=== PATIENT | female | born 1995 | race Caucasian/White ===

== ENCOUNTER 2016-11-14 04:46 | Emergency (ER) | payer OTHER ==
[~2016-11-14] VITALS: Ht 160 cm; Wt 62.1 kg
[2016-11-14 04:46] VITALS: BP 137/87
[~2016-11-14 04:46] MED LIST: IBUPROFEN800 M1 PO; MACROBID100 MG PO; MULTI VIT W/FLU1 CTB; PRENATAL VITAMI1 T10 PO
--- NOTE | 2016-11-14 04:46 | NUR ---
[place] [facility] AT BEDSIDE.
--- NOTE | 2016-11-14 04:46 | NUR ---
0442 BIBA TO ER BED 1
--- NOTE | 2016-11-14 04:46 | NUR ---
0443 Patient being evaluated by physician at bedside.
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
[2016-11-14] MEDS ORDERED: KETOROLAC 30 MG/ML VIAL IM ONE (04:50)
[2016-11-14] MEDS ORDERED: LORazepam 2 MG/ML VIAL IM ONE (04:50)
[2016-11-14] MEDS ORDERED: LORazepam 2 MG/ML VIAL IVP ONE (05:25)
[2016-11-14] MEDS ORDERED: KETOROLAC 30 MG/ML VIAL IVP ONE (05:25)
--- NOTE | 2016-11-14 05:45 | NUR ---
PT RESTING, FAMILY AT BEDSIDE.VSS; PATIENT POSITIONED FOR COMFORT; HOB ELEVATED; BEDRAILS UP X2; BED DOWN. ER MD MADE AWARE OF PT STATUS.
--- NOTE | 2016-11-14 06:53 | NUR ---
Patient appears to be resting comfortably in bed. Vital Signs within normal limits. Respirations even and unlabored.
--- NOTE | 2016-11-14 06:57 | NUR ---
[facility] AT BEDSIDE [employer] CASE # [id number].
--- NOTE | 2016-11-14 07:02 | NUR ---
Patient noted to have existing wounds upon arrival to ER. Wound covered with dressing. Physician informed.
[2016-11-14 07:03] VITALS: BP 122/76
--- NOTE | 2016-11-14 07:04 | NUR ---
Patient discharged with v/s stable. Written and verbal after care instructions given and explained. Patient alert, oriented and verbalized understanding of instructions. Wheel Chair Assisted with steady gait. All questions addressed prior to discharge. ID band removed. Patient advised to follow up with PMD. Rx of ULTRAM 50MG QIDPRN, given. Patient educated on indication of medication including possible reaction and side effects. Opportunity to ask questions provided and answered.
== END 2016-11-14 07:03 | disposition home or self-care (01) ==
LOC: MED 04:46
DX: S00.83XA Contusion of other part of head, initial encounter (principal); Y04.2XXA Assault by strike against or bumped into by another person, initial encounter; Y93.89 Activity, other specified; Y92.89 Other specified places as the place of occurrence of the external cause; Y99.8 Other external cause status
CPT/HCPCS: 70450; 70486; 72125; 96374; 96375; 99284; J1885; J2060

== ENCOUNTER 2016-12-13 11:39 | Emergency (ER) | payer OTHER ==
[~2016-12-13] VITALS: Ht 160 cm; Wt 61.2 kg
[2016-12-13 11:54] VITALS: BP 109/76
[2016-12-13 13:17] VITALS: BP 109/76
--- NOTE | 2016-12-13 13:19 | NUR ---
[facility] in [facility] - 12/13/16 at 1319 by MONO PT AMBULATED TO BED 6
--- NOTE | 2016-12-13 13:19 | NUR ---
PT AMBULATED TO BED 7
--- NOTE | 2016-12-13 13:19 | NUR ---
21/F TO ED WITH C/O PAIN "IN HER MIDDLE ABDOMEN UNDER HER RIBS" X3 DAYS. DENIES PAIN AT THIS TIME. BOWEL SOUNDS PRESENT X4Q. LUNGS CLEAR BILAT. HR EVEN AND REGULAR. AAOX4. VSS. NO SIGNS OF DISTRESS.
--- NOTE | 2016-12-13 14:00 | NUR ---
PATIENT LEFT WITHOUT BEING SEEN BY DR. ENRIQUEZ. NO FURTHER CARE PROVIDED FOR PATIENT.
== END 2016-12-13 14:00 | disposition left against medical advice (07) ==
LOC: MED 11:47
DX: R07.81 Pleurodynia (principal); Z53.21 Procedure and treatment not carried out due to patient leaving prior to being seen by health care provider

== ENCOUNTER 2017-07-05 07:24 | Emergency (ER) | payer OTHER ==
[~2017-07-05] VITALS: Ht 160 cm; Wt 74.8 kg
[2017-07-05 07:32] VITALS: BP 130/62
--- NOTE | 2017-07-05 07:33 | NUR ---
Patient ambulated to bed 07.
--- NOTE | 2017-07-05 07:36 | NUR ---
Dr. Collier evaluating patient at bedside.
--- NOTE | 2017-07-05 07:38 | NUR ---
PT PRESENTS TO ER W/C/O LOWER ABDOMINAL PAIN THAT RADIATATES TO LOWER BACK X2 DAYS. DENIES V/D; SKIN IS PINK/WARM/DRY; AAOX4 WITH EVEN AND STEADY GAIT; LUNGS CLEAR BL; HR EVEN AND REGULAR; PT DENIES ANY FEVER, CP, SOB, OR COUGH AT THIS TIME; PATIENT STATES PAIN OF 7/10 AT THIS TIME; VSS; PATIENT POSITIONED FOR COMFORT; HOB ELEVATED; BEDRAILS UP X2; BED DOWN. ER MD MADE AWARE OF PT STATUS.
[2017-07-05] MEDS ORDERED: KETOROLAC 30 MG/ML VIAL IM ONE (07:40)
[2017-07-05 07:58] LABS: BILIRUBIN,URINE NEGATIVE (NEGATIVE); BLOOD, URINE 1+ (NEGATIVE); COLOR,URINE YELLOW (YELLOW); LEUKOCYTE ESTERASE ,URINE 1+ (NEGATIVE); NITRITE, URINE NEGATIVE (NEGATIVE); PH,URINE 5.5 (5.0-9.0); UGLUCOSE NEGATIVE (NEGATIVE)
[2017-07-05 08:13] LABS: APPEARANCE,URINE CLEAR (CLEAR)
[2017-07-05 08:16] LABS: RBC,URINE NONE SEEN /HPF (0-5)
[2017-07-05 08:50] LABS: BASOPHILS # (AUTO) 0.5 K/uL (0.00-0.22); BASOPHILS % (AUTO) 4.1 % (0.0-2.0); EOSINOPHILS # (AUTO) 0.1 K/uL (0-0.4); HEMATOCRIT 42.6 % (36-48); LYMPHOCYTES # (AUTO) 1.7 K/uL (2.5-16.5); LYMPHOCYTES % (AUTO) 14.5 % (20.5-51.1); MEAN CORPUSCULAR HEMOGLOBIN 30 pg (27-31); MEAN CORPUSCULAR HGB CONC 33 g/dL (33-37); MEAN CORPUSCULAR VOLUME 92 fL (80-94); MONOCYTES # (AUTO) 0.8 K/uL (0.8-1.0); MONOCYTES % (AUTO) 6.5 % (1.7-9.3); NEUTROPHILS # (AUTO) 8.4 K/uL (1.8-7.7); NEUTROPHILS % (AUTO) 73.9 % (42.2-75.2); PLATELET COUNT (AUTO) 224 K/uL (140-450); RED BLOOD CELL COUNT(AUTO) 4.61 MIL/uL (4.20-5.40); WHITE BLOOD COUNT (AUTO) 11.5 K/uL (4.8-10.8)
[2017-07-05 09:06] LABS: ALBUMIN 3.8 g/dL (3.4-5.0); ANION GAP 12.9 (8-16); CREATININE 0.6 mg/dL (0.6-1.3); POTASSIUM 3.9 mmol/L (3.5-5.1); TOTAL BILIRUBIN 0.4 mg/dL (0.0-1.0)
[2017-07-05] MEDS ORDERED: NACL 0.9% 1,000 ML IV ONE (09:45)
--- NOTE | 2017-07-05 10:08 | NUR ---
Patient being taken to CT wheelchair per tech.
--- NOTE | 2017-07-05 10:20 | NUR ---
Patient back from CT via wheelchair per tech.
[2017-07-05 11:06] VITALS: BP 116/76
--- NOTE | 2017-07-05 11:06 | NUR ---
Patient discharged with v/s stable. Written and verbal after care instructions given and explained. Patient alert, oriented and verbalized understanding of instructions. Ambulatory with steady gait. All questions addressed prior to discharge. ID band removed. Patient advised to follow up with PMD. Rx of NITROFURANTOIN given. Patient educated on indication of medication including possible reaction and side effects. Opportunity to ask questions provided and answered.
== END 2017-07-05 11:06 | disposition home or self-care (01) ==
LOC: MED 07:24
DX: N39.0 Urinary tract infection, site not specified (principal)
CPT/HCPCS: 36415; 74177; 80053; 81001; 81025; 82150; 83690; 85025; 87086; 96360; 96372; 99285; J1885; J7030; Q9967

== ENCOUNTER 2018-02-17 17:36 | Emergency (ER) | payer OTHER ==
[~2018-02-17] VITALS: Ht 162.6 cm; Wt 61.2 kg
[2018-02-17 17:38] VITALS: BP 146/89
--- NOTE | 2018-02-17 17:55 | NUR ---
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 DENIES N/V/D; SKIN IS PINK/WARM/DRY; AAOX4 WITH EVEN AND STEADY GAIT; LUNGS CLEAR BL; HR EVEN AND REGULAR; PT DENIES ANY FEVER SOB, OR COUGH AT THIS TIME; PATIENT STATES PAIN OF 7/10 AT THIS TIME; VSS; PATIENT POSITIONED FOR COMFORT; HOB ELEVATED; BEDRAILS UP X2; BED DOWN. ER MD MADE AWARE OF PT STATUS.
[2018-02-17] MEDS ORDERED: KETOROLAC 60 MG/2 ML VIAL IM ONE (18:15)
[2018-02-17] MEDS ORDERED: LORazepam 2 MG/ML VIAL IM ONE (18:15)
[2018-02-17 18:48] VITALS: BP 101/72
== END 2018-02-17 18:48 | disposition home or self-care (01) ==
LOC: MED 17:36
DX: R07.89 Other chest pain (principal); F41.9 Anxiety disorder, unspecified; R03.0 Elevated blood-pressure reading, without diagnosis of hypertension
CPT/HCPCS: 71045; 81002; 81025; 93005; 96372; 99284; J1885; J2060

== ENCOUNTER 2018-04-08 17:24 | Emergency (ER) | payer OTHER ==
[~2018-04-08] VITALS: Ht 160 cm; Wt 64.0 kg
[2018-04-08 17:32] VITALS: BP 131/70
[2018-04-08] MEDS ORDERED: NACL 0.9% 1,000 ML IV SCH (18:21)
[2018-04-08 18:57] LABS: BASOPHILS # (AUTO) 0.1 K/uL (0.00-0.22); BASOPHILS % (AUTO) 0.6 % (0.0-2.0); EOSINOPHILS # (AUTO) 0.1 K/uL (0-0.4); EOSINOPHILS % (AUTO) 0.7 % (0.0-4.0); HEMATOCRIT 43.1 % (36-48); HEMOGLOBIN 14.3 g/dL (12.0-16.0); LYMPHOCYTES # (AUTO) 3.1 K/uL (2.5-16.5); LYMPHOCYTES % (AUTO) 34.9 % (20.5-51.1); MEAN CORPUSCULAR HEMOGLOBIN 31 pg (27-31); MEAN CORPUSCULAR HGB CONC 33 g/dL (33-37); MEAN CORPUSCULAR VOLUME 92.5 fL (80-94); MONOCYTES # (AUTO) 0.5 K/uL (0.8-1.0); MONOCYTES % (AUTO) 5.4 % (1.7-9.3); NEUTROPHILS # (AUTO) 5.1 K/uL (1.8-7.7); NEUTROPHILS % (AUTO) 58.4 % (42.2-75.2); PLATELET COUNT (AUTO) 218 K/uL (140-450); RED BLOOD CELL COUNT(AUTO) 4.67 MIL/uL (4.20-5.40); RED CELL DISTRIBUTION WIDTH 13.4 % (11.6-13.7); WHITE BLOOD COUNT (AUTO) 8.8 K/uL (4.8-10.8)
[2018-04-08 19:15] LABS: ALBUMIN 3.8 g/dL (3.4-5.0); ANION GAP 11.7 (8-16); CARBON DIOXIDE 27.6 mmol/L (21-32); CREATININE 0.6 mg/dL (0.6-1.3); POTASSIUM 4.3 mmol/L (3.5-5.1); TOTAL BILIRUBIN 0.3 mg/dL (0.0-1.0)
[2018-04-08 19:23] VITALS: BP 128/78
== END 2018-04-08 19:23 | disposition home or self-care (01) ==
LOC: MED 17:24
DX: R10.9 Unspecified abdominal pain (principal)
CPT/HCPCS: 36415; 80053; 81002; 81025; 82150; 83690; 85025; 99284

== ENCOUNTER 2019-03-31 15:47 | Emergency (ER) | payer OTHER ==
[~2019-03-31] VITALS: Ht 167.6 cm; Wt 77.1 kg
--- NOTE | 2019-03-31 15:47 | NUR ---
Patient BIBA BLS, transferred to bed 6. RN evaluating patient at bedside.
[2019-03-31 15:48] VITALS: BP 131/80
--- NOTE | 2019-03-31 15:51 | NUR ---
urine cup handed to pt for sample
--- NOTE | 2019-03-31 16:01 | NUR ---
BIBA W/ C/O LLQ PAIN STARTING THIS MORNING AND BECOMING INCREASINGLY WORSE, /, SHARP AND TIGHT. PT REPORTS "IT FEELS LIKE SOMETHING BURST". DENIED INJURY, N/V/D FEVER. LBM 03/31/19, PER PT, REGULAR. ABD SOFT, FLAT AND TENDER TO PALPATION ON LLQ. PT REPORTS BURNING WHILE PEEING, DENIES FREQUENCY, URGENCY. BED IN LOW POSITION, SIDE RAIL UP X1.
[2019-03-31] MEDS ORDERED: KETOROLAC 60 MG/2 ML VIAL IM ONE (16:10)
[2019-03-31 16:35] VITALS: BP 131/80
--- NOTE | 2019-03-31 16:36 | NUR ---
Patient discharged with v/s stable. Written and verbal after care instructions given and explained. Patient alert, oriented and verbalized understanding of instructions. Ambulatory with steady gait. All questions addressed prior to discharge. ID band removed. Patient advised to follow up with PMD. Rx of NORCO & IBUPROFEN given. Patient educated on indication of medication including possible reaction and side effects. Opportunity to ask questions provided and answered.
== END 2019-03-31 16:34 | disposition home or self-care (01) ==
LOC: MED 15:47
DX: R10.32 Left lower quadrant pain (principal); M79.10 Myalgia, unspecified site; R30.0 Dysuria
CPT/HCPCS: 81002; 81025; 96372; 99283; J1885

== ENCOUNTER 2021-03-09 00:44 | Emergency (ER) | payer OTHER ==
[~2021-03-09] VITALS: Ht 160 cm; Wt 79.4 kg
[2021-03-09 00:47] VITALS: BP 135/75
--- NOTE | 2021-03-09 00:53 | NUR ---
PT TAKEN TO BED 3
[2021-03-09] MEDS ORDERED: NACL 0.9% 1,000 ML IV ONE (01:00)
[2021-03-09] MEDS ORDERED: ACETAMINOPHEN EXTRA STRENGTH 500 MG TAB PO ONE (01:00)
--- NOTE | 2021-03-09 01:01 | NUR ---
PT BIB SELF FOR C/O VAGINAL BLEEDING AND ABDOMINAL CRAMPING X 1 HOUR; REPORTING 8 WEEKS . PT STATES "WHEN I WIPE THERES BLOOD." PT ALSO NOTED "MUCUS" X 1 INCIDENT AFTER WIPING. PT REPORTS INTERMITTENT ABDOMINAL CRAMPING, PAIN 04/18. PT STATES SHE CONFIRMED HER IS 8 WEEKS WITH TWINS WHILE AT [employer]. PT REPORTS FIRST OB APPT IS SET FOR 03/27. DENIES N/V/D, CP, SOB. SEE COMPLETE ASSESSMENT FOR FURTHER DETAILS. MED HX: DENIES ALLERGIES: NKA
--- NOTE | 2021-03-09 01:05 | NUR ---
IV RAC 20G ESTABLISHED, LABS DRAWN AND HAND GIVEN TO MONICA, DEPARTMENT MANAGER, AT BEDSIDE.
[2021-03-09 01:15] LABS: BASOPHILS # (AUTO) 0.1 K/uL (0.00-0.22); BASOPHILS % (AUTO) 0.6 % (0.0-2.0); EOSINOPHILS # (AUTO) 0.1 K/uL (0-0.4); EOSINOPHILS % (AUTO) 0.6 % (0.0-4.0); HEMATOCRIT 38.1 % (36-48); HEMOGLOBIN 12.8 g/dL (12.0-16.0); LYMPHOCYTES # (AUTO) 3.3 K/uL (2.5-16.5); LYMPHOCYTES % (AUTO) 23.5 % (20.5-51.1); MEAN CORPUSCULAR HEMOGLOBIN 31 pg (27-31); MEAN CORPUSCULAR HGB CONC 34 g/dL (33-37); MEAN CORPUSCULAR VOLUME 92.2 fL (80-94); MONOCYTES # (AUTO) 0.8 K/uL (0.8-1.0); MONOCYTES % (AUTO) 5.5 % (1.7-9.3); NEUTROPHILS # (AUTO) 9.9 K/uL (1.8-7.7); NEUTROPHILS % (AUTO) 69.8 % (42.2-75.2); PLATELET COUNT (AUTO) 283 K/uL (140-450); RED BLOOD CELL COUNT(AUTO) 4.13 MIL/uL (4.20-5.40); RED CELL DISTRIBUTION WIDTH 13.3 % (11.6-13.7); WHITE BLOOD COUNT (AUTO) 14.2 K/uL (4.8-10.8)
[2021-03-09 01:15] LABS: APPEARANCE,URINE CLOUDY (CLEAR); BILIRUBIN,URINE NEGATIVE (NEGATIVE); BLOOD, URINE 3+ (NEGATIVE); COLOR,URINE YELLOW (YELLOW); LEUKOCYTE ESTERASE ,URINE NEGATIVE (NEGATIVE); NITRITE, URINE NEGATIVE (NEGATIVE); UGLUCOSE NEGATIVE (NEGATIVE)
--- NOTE | 2021-03-09 01:32 | NUR ---
Dr. Nava examining patient.
--- NOTE | 2021-03-09 01:40 | NUR ---
ultrasound at bedside.
[2021-03-09 01:43] LABS: POTASSIUM 3.4 mmol/L (3.5-5.1)
[2021-03-09 01:44] LABS: ANION GAP 11.4 (8-16); CREATININE 0.5 mg/dL (0.6-1.3); TOTAL BILIRUBIN 0.2 mg/dL (0.0-1.0)
[2021-03-09 01:45] LABS: ALBUMIN 3.5 g/dL (3.4-5.0)
[2021-03-09 01:55] LABS: RBC,URINE 0-5 /HPF (0-5); WBC,URINE 0-5 /HPF (0-5)
[2021-03-09 01:56] LABS: URINE AMORPHOUS URATE 3+ /HPF (None Seen)
--- NOTE | 2021-03-09 03:00 | NUR ---
Patient appears to be resting comfortably in bed. Vital Signs within normal limits. Respirations even and unlabored. PT DENIES PAIN OR DISCOMFORT AT THIS TIME.
[2021-03-09] MEDS ORDERED: CEPH-588 PO (03:24)
[2021-03-09] MEDS ORDERED: cephALEXin 500 MG CAP PO ONE (03:25)
[2021-03-09 05:40] VITALS: BP 101/67
--- NOTE | 2021-03-09 05:40 | NUR ---
Patient discharged with v/s stable. Written and verbal after care instructions given and explained. Patient alert, oriented and verbalized understanding of instructions. Ambulatory with steady gait. All questions addressed prior to discharge. ID band removed. Patient advised to follow up with PMD. Rx of KEFLEX given. Patient educated on indication of medication including possible reaction and side effects. Opportunity to ask questions provided and answered. PT PROVIDED COPY OF LAB RESULTS, ALONG WITH CD OF ULTRASOUND.
== END 2021-03-09 05:40 | disposition home or self-care (01) ==
LOC: MED 00:44
DX: O20.0 Threatened abortion (principal); O23.41 Unspecified infection of urinary tract in pregnancy, first trimester; Z3A.08 8 weeks gestation of pregnancy
CPT/HCPCS: 36415; 76802; 80053; 81001; 84702; 85025; 85610; 86900; 86901; 87086; 96360; 96361; 99284; J7030

== ENCOUNTER 2021-06-17 12:50 | Emergency (ER) | payer OTHER ==
[~2021-06-17] VITALS: Ht 157.5 cm; Wt 74.8 kg
[~2021-06-17 12:50] MED LIST changes: +CEPH-588 PO; -IBUPROFEN800 M1 PO; -MACROBID100 MG PO; -MULTI VIT W/FLU1 CTB; -PRENATAL VITAMI1 T10 PO
[2021-06-17 13:18] VITALS: BP 139/79
[2021-06-17] MEDS ORDERED: KETOROLAC 30 MG/ML VIAL IM ONE (13:40)
[2021-06-17] MEDS ORDERED: METH-1681 PO (14:58)
[2021-06-17] MEDS ORDERED: NAPR-54 PO (14:58)
--- NOTE | 2021-06-17 16:01 | NUR ---
Patient discharged with v/s stable. Written and verbal after care instructions ABOUT CONTUSION AND HAND CONTUSION given and explained. Patient alert, oriented and verbalized understanding of instructions. Ambulatory with steady gait. All questions addressed prior to discharge. ID band removed. Patient advised to follow up with PMD. Rx of ROBAXIN AND NAPROXEN given. Patient educated on indication of medication including possible reaction and side effects. Opportunity to ask questions provided and answered.
== END 2021-06-17 16:01 | disposition home or self-care (01) ==
LOC: MED 12:50
DX: S60.222A Contusion of left hand, initial encounter (principal); S40.012A Contusion of left shoulder, initial encounter; Z79.899 Other long term (current) drug therapy; V89.2XXA Person injured in unspecified motor-vehicle accident, traffic, initial encounter; Y93.89 Activity, other specified; Y92.89 Other specified places as the place of occurrence of the external cause; Y99.8 Other external cause status
CPT/HCPCS: 73000; 73130; 81025; 96372; 99284; J1885